=== PATIENT | male | born 1955 | race Caucasian/White ===

== ENCOUNTER → 2017-10-19 | Outpatient (CLI) | payer BC ==
--- NOTE | 2017-10-19 07:41 | DIAGNOSTIC IMAGING REPORT ---
ABDOMEN COMPLETE (US) CLINICAL HISTORY: 62 years-old Male presenting with AB PAIN. TECHNIQUE: Real-time grayscale and limited color Doppler ultrasound imaging of the abdomen was performed. COMPARISON: None. FINDINGS: Pancreas: Largely obscured due to overlying bowel gas. Liver: Normal echogenicity and echotexture. The liver measures 13.6 cm in maximal sagittal dimension. No sonographic evidence of hepatic mass. Main portal vein patent with normal directional flow. Biliary: No intrahepatic biliary ductal dilatation. Common bile duct measures up to 4 mm in diameter. Gallbladder: 3 mm hyperechoic focus along the posterior wall near the fundus, likely cholesterol polyp. No other evidence of gallstones. No gallbladder distention, gallbladder wall thickening, or pericholecystic fluid. Spleen: Normal in echogenicity and size, measuring 8.1 cm in length. Kidneys: Prominent 6.7 cm simple appearing cyst in the right kidney. Right kidney measures 10.5 cm, and left kidney measures 10.6 cm. No hydronephrosis. Vasculature: Visualized portions of the IVC and abdominal aorta normal. Ascites: None. IMPRESSION: No evidence of cholelithiasis or biliary ductal dilatation. Suspected subcentimeter gallbladder cholesterol polyp. No sonographic evidence of acute intra-abdominal pathology. Electronically signed by: Mynor Tapia M.D. 10/19/2017 7:40 AM Dictated Date/Time: 10/19/2017 7:37 AM
== END | disposition home or self-care (01) ==
LOC: C.ULTR 06:43
PROVIDERS: ATTEND Family Medicine
DX: R10.10 Upper abdominal pain, unspecified (principal)